=== PATIENT | male | born 1995 | race Caucasian/White ===

== ENCOUNTER 2023-01-13 17:50 | Inpatient (IN) | payer BC, MEDICAID ==
[~2023-01-13] VITALS: Ht 175.3 cm; Wt 106.1 kg
[2023-01-13 18:09] VITALS: BP 130/68; PULSE 109; RESP 18; TEMP 98.2; O2SAT 98
[2023-01-13] MEDS ORDERED: KETOROLAC 30 MG/ML VIAL IVP ONE (18:20)
[2023-01-13] MEDS ORDERED: NACL 0.9% 1,000 ML IV ONE ×2 (18:20→19:45)
[2023-01-13] MEDS ORDERED: FAMOTIDINE 20 MG/2 ML VIAL IVP ONE (18:55)
[2023-01-13 19:10] LABS: HEMATOCRIT 47.5 % (36-52); HEMOGLOBIN 15.7 g/dL (12.0-18.0); MEAN CORPUSCULAR HEMOGLOBIN 30 pg (27-31); MEAN CORPUSCULAR HGB CONC 33 g/dL (33-37); PLATELET COUNT (AUTO) 188 K/uL (140-450); RED BLOOD CELL COUNT(AUTO) 5.28 MIL/uL (4.20-6.10); RED CELL DISTRIBUTION WIDTH 14.4 % (11.6-13.7); WHITE BLOOD COUNT (AUTO) 20.9 K/uL (4.8-10.8)
[2023-01-13 19:25] LABS: ALBUMIN 3.8 g/dL (3.4-5.0); ANION GAP 14.5 (8-16); CALCIUM 9.8 mg/dL (8.5-10.1); CARBON DIOXIDE 25.8 mmol/L (21-32); CREATININE 1.3 mg/dL (0.6-1.3); POTASSIUM 4.3 mmol/L (3.5-5.1); TOTAL BILIRUBIN 0.8 mg/dL (0.0-1.0); TOTAL PROTEIN, SERUM 8.6 g/dL (6.4-8.2)
[2023-01-13 19:30] LABS: LACTIC ACID 1.6 mmol/L (0.4-2.0)
[2023-01-13] MEDS ORDERED: PIPERACILLIN/TAZOBACTAM 3.375 GM in DEXTROSE 5% 50 ML IV ONE (19:30)
[2023-01-13] MEDS ORDERED: VANCOMYCIN 1,000 MG in DEXTROSE 5% 250 ML IV ONE (19:30)
[2023-01-13] MEDS ORDERED: MORPHINE SULFATE 4 MG/ML SYR IVP ONE (19:30)
[2023-01-13 19:33] LABS: LYMPHOCYTES % (MANUAL) 7 % (20-46); PLATELET ESTIMATE ADEQUATE; PROMYELOCYTES % 1 % (0-0)
[2023-01-13] MEDS ORDERED: KETOROLAC 30 MG/ML VIAL ONE (19:33)
[2023-01-13] MEDS ORDERED: VANCOMYCIN 1,000 MG VIAL ONE ×2 (19:35→23:54)
[2023-01-13] MEDS ORDERED: PIPERACILLIN/TAZOBACTAM 3.375 GM VIAL IV ONE ×2 (19:36→22:45)
[2023-01-13] MEDS ORDERED: ONDANSETRON 4 MG/2 ML VIAL IVP ONE (19:45)
[2023-01-13] MEDS ORDERED: ZOLPIDEM 5 MG TAB PO PRN (20:15)
[2023-01-13] MEDS ORDERED: POTASSIUM CHLORIDE 10 MEQ TABER PO PRN (20:15)
[2023-01-13] MEDS ORDERED: HYDROcodone/APAP 7.5/325 MG 1 TAB PO PRN (20:15)
[2023-01-13] MEDS ORDERED: DOCUSATE SODIUM 100 MG GELCAP PO PRN (20:15)
[2023-01-13] MEDS ORDERED: ACETAMINOPHEN 325 MG TAB PO PRN (20:15)
[2023-01-13] MEDS ORDERED: guaiFENesin DM 200/20 MG-10 ML 10 ML UDC PO PRN (20:15)
[2023-01-13] MEDS ORDERED: NACL 0.9% 1,000 ML IV SCH (20:15)
[2023-01-13 20:45] LABS: APPEARANCE,URINE CLEAR (CLEAR); BILIRUBIN,URINE 2+ (NEGATIVE); BLOOD, URINE TRACE-I (NEGATIVE); COLOR,URINE YELLOW (YELLOW); LEUKOCYTE ESTERASE ,URINE NEGATIVE (NEGATIVE); NITRITE, URINE NEGATIVE (NEGATIVE); PROTEIN,URINE 3+ (NEGATIVE); UGLUCOSE NEGATIVE (NEGATIVE); UROBILINOGEN,URINE 0.2 EU/dL (0.2 - 1)
[2023-01-13 20:51] LABS: INR 1.14 (0.8-1.2); PARTIAL THROMBOPLASTIN TIME 35.2 secs (22-35.6); PROTHROMBIN TIME 11.9 secs (10.8-13.4)
[2023-01-13 20:54] LABS: BACTERIA,URINE None Seen /HPF (None Seen); RBC,URINE 0-5 /HPF (0-5); SQUAMOUS EPITHELIAL CELL,UR None Seen /LPF (0-3 (FEW)); WBC,URINE NONE SEEN /HPF (0-5)
[2023-01-13 22:22] LABS: AMPHETAMINE, URINE NEGATIVE ng/ml (NEG <=1000); BARBITURATE, URINE NEGATIVE ng/ml (NEG <=200); BENZODIAZEPINE, URINE NEGATIVE ng/mL (NEG <=200); CANNABINOID, URINE POSITIVE ng/mL (NEG <=50); COCAINE, URINE NEGATIVE ng/mL (NEG <=300); OPIATE, URINE POSITIVE ng/mL (NEG <=2000); PHENCYCLIDINE SCREEN,URINE NEGATIVE ng/mL (NEG <=25)
[2023-01-13 22:30] VITALS: PULSE 79; RESP 16; O2SAT 98
[2023-01-13] MEDS ORDERED: VANCOMYCIN 1GM/DEXT 5% PREMIX 200 ML IV ONE (23:00)
[2023-01-13] MEDS: PIPERACILLIN/TAZOBACTAM 3.375 GM in DEXTROSE 5% 50 ML IV SCH (23:15)
[2023-01-14] VITALS (12 sets, daily range): BP systolic 108–136; BP diastolic 47–80; PULSE 66–102; RESP 17–21; TEMP 96.1–98; O2SAT 95–98
[2023-01-14] MEDS: DEXT 5% /NACL 0.9% 1,000 ML IV SCH ×2 (02:23→16:00)
[2023-01-14] MEDS ORDERED: PIPERACILLIN/TAZOBACTAM 3.375 GM VIAL IV ONE (04:29)
[2023-01-14] MEDS: PIPERACILLIN/TAZOBACTAM 3.375 GM in DEXTROSE 5% 50 ML IV SCH ×3 (05:07→20:55)
[2023-01-14] MEDS ORDERED: KETOROLAC 15 MG/ML VIAL IVP ONE (05:35)
[2023-01-14 05:54] LABS: ANION GAP 12.7 (8-16); CALCIUM 8.6 mg/dL (8.5-10.1); CARBON DIOXIDE 26.1 mmol/L (21-32); CREATININE 1.1 mg/dL (0.6-1.3); POTASSIUM 3.8 mmol/L (3.5-5.1); TOTAL BILIRUBIN 0.7 mg/dL (0.0-1.0); TOTAL PROTEIN, SERUM 7.2 g/dL (6.4-8.2)
[2023-01-14] MEDS ORDERED: PANTOPRAZOLE 40 MG TABEC PO SCH (09:00)
[2023-01-14] MEDS: VANCOMYCIN PER PHARMACY MC SCH (09:00)
[2023-01-14] MEDS: ONDANSETRON 4 MG/2 ML VIAL IM/IVP PRN ×3 (09:32→22:50)
[2023-01-14] MEDS: VANCOMYCIN 1.25GM PREMIX 250 ML IV SCH ×2 (09:41→16:00)
[2023-01-14 10:20] LABS: BASOPHILS % (AUTO) 0.3 % (0.0-2.0); EOSINOPHILS % (AUTO) 0.1 % (0.0-4.0); HEMATOCRIT 43.9 % (36-52); HEMOGLOBIN 14.2 g/dL (12.0-18.0); LYMPHOCYTES # (AUTO) 0.9 K/uL (2.0-11.5); LYMPHOCYTES % (AUTO) 5.8 % (20.5-51.1); MEAN CORPUSCULAR HEMOGLOBIN 30 pg (27-31); MEAN CORPUSCULAR HGB CONC 32 g/dL (33-37); MEAN CORPUSCULAR VOLUME 91.5 fL (80-94); MONOCYTES # (AUTO) 1.5 K/uL (0.8-1.0); MONOCYTES % (AUTO) 9.7 % (1.7-9.3); NEUTROPHILS # (AUTO) 13.3 K/uL (1.8-7.7); NEUTROPHILS % (AUTO) 84.1 % (42.2-75.2); PLATELET COUNT (AUTO) 164 K/uL (140-450); RED BLOOD CELL COUNT(AUTO) 4.79 MIL/uL (4.20-6.10); RED CELL DISTRIBUTION WIDTH 14.4 % (11.6-13.7); WHITE BLOOD COUNT (AUTO) 15.8 K/uL (4.8-10.8)
[2023-01-14] MEDS: NACL 0.9% 1,000 ML IV SCH (10:35)
[2023-01-14] MEDS ORDERED: MAG SULF 2000 MG/WATER PREMIX 50 ML IV PRN (10:35)
[2023-01-14] MEDS ORDERED: POTASSIUM CHLORIDE 10 MEQ TABER PO PRN (10:35)
[2023-01-14] MEDS ORDERED: ONDANSETRON 4 MG/2 ML VIAL IVP PRN (10:35)
[2023-01-14] MEDS ORDERED: HYDROcodone/APAP 7.5/325 MG 1 TAB PO PRN (10:35)
[2023-01-14] MEDS ORDERED: ACETAMINOPHEN 325 MG TAB PO PRN (10:35)
[2023-01-14 11:54] LABS: INR 1.12 (0.8-1.2); PROTHROMBIN TIME 11.7 secs (10.8-13.4)
[2023-01-14 11:59] LABS: LACTIC ACID 1.1 mmol/L (0.4-2.0)
[2023-01-14 12:08] LABS: AMYLASE 288 U/L (25-115); CHOL/HDL RATIO 4.4 (1-4.5); CHOLESTEROL 105 mg/dL (<200); FREE T4 (FREE THYROXINE) 1.12 ng/dL (0.76-1.46); HDL CHOLESTEROL 24 mg/dL (40-60); LDL (CALC) 65 mg/dL (60-100); LIPASE 1583 U/L (73-393); PHOSPHORUS 2.5 mg/dL (2.5-4.9); THYROID STIMULATING HORMONE 1.39 uIU/mL (0.34-3.74); TRIGLYCERIDES 84 mg/dL (30-150)
[2023-01-14] MEDS: DOCUSATE SODIUM 100 MG GELCAP PO SCH (20:55)
[2023-01-15] VITALS (9 sets, daily range): BP systolic 115–130; BP diastolic 61–80; PULSE 52–92; RESP 16–18; TEMP 97.3–98.5; O2SAT 96–100
[2023-01-15] MEDS: VANCOMYCIN 1.25GM PREMIX 250 ML IV SCH ×3 (00:29→17:03)
[2023-01-15] MEDS: PIPERACILLIN/TAZOBACTAM 3.375 GM in DEXTROSE 5% 50 ML IV SCH ×3 (04:48→20:34)
[2023-01-15] MEDS: NACL 0.9% 1,000 ML IV SCH (06:35)
[2023-01-15 06:47] LABS: BASOPHILS % (AUTO) 0.2 % (0.0-2.0); EOSINOPHILS % (AUTO) 0.1 % (0.0-4.0); HEMATOCRIT 42.5 % (36-52); HEMOGLOBIN 13.8 g/dL (12.0-18.0); LYMPHOCYTES # (AUTO) 0.9 K/uL (2.0-11.5); LYMPHOCYTES % (AUTO) 6.7 % (20.5-51.1); MEAN CORPUSCULAR HEMOGLOBIN 30 pg (27-31); MEAN CORPUSCULAR HGB CONC 33 g/dL (33-37); MEAN CORPUSCULAR VOLUME 90.7 fL (80-94); MONOCYTES # (AUTO) 1.4 K/uL (0.8-1.0); MONOCYTES % (AUTO) 9.8 % (1.7-9.3); NEUTROPHILS # (AUTO) 11.6 K/uL (1.8-7.7); NEUTROPHILS % (AUTO) 83.2 % (42.2-75.2); PLATELET COUNT (AUTO) 218 K/uL (140-450); RED BLOOD CELL COUNT(AUTO) 4.69 MIL/uL (4.20-6.10); RED CELL DISTRIBUTION WIDTH 14.5 % (11.6-13.7)
[2023-01-15 07:13] LABS: ALBUMIN 2.9 g/dL (3.4-5.0); ANION GAP 13.5 (8-16); CALCIUM 9.1 mg/dL (8.5-10.1); CARBON DIOXIDE 27.5 mmol/L (21-32); CREATININE 1.2 mg/dL (0.6-1.3); TOTAL BILIRUBIN 0.5 mg/dL (0.0-1.0); TOTAL PROTEIN, SERUM 7.3 g/dL (6.4-8.2)
[2023-01-15] MEDS: DEXT 5% /NACL 0.9% 1,000 ML IV SCH (08:21)
[2023-01-15] MEDS: DOCUSATE SODIUM 100 MG GELCAP PO SCH ×2 (08:21→20:34)
[2023-01-15] MEDS: VANCOMYCIN PER PHARMACY MC SCH (08:32)
[2023-01-15] MEDS ORDERED: PANTOPRAZOLE 40 MG INJ VIAL IVP SCH ×2 (09:00)
[2023-01-16] VITALS: BP 114/66; PULSE 57; PULSE 84; RESP 16; TEMP 97.4; O2SAT 99
[2023-01-16] MEDS: DEXT 5% /NACL 0.9% 1,000 ML IV SCH (01:05)
[2023-01-16] MEDS: VANCOMYCIN 1.25GM PREMIX 250 ML IV SCH ×2 (01:47→10:11)
[2023-01-16 04:00] VITALS: BP 139/77; PULSE 55; PULSE 58; RESP 16; TEMP 98.6; O2SAT 97
[2023-01-16] MEDS: PIPERACILLIN/TAZOBACTAM 3.375 GM in DEXTROSE 5% 50 ML IV SCH (05:28)
[2023-01-16 06:46] LABS: BASOPHILS % (AUTO) 0.2 % (0.0-2.0); EOSINOPHILS # (AUTO) 0.1 K/uL (0-0.4); EOSINOPHILS % (AUTO) 0.5 % (0.0-4.0); HEMATOCRIT 41.1 % (36-52); HEMOGLOBIN 13.4 g/dL (12.0-18.0); LYMPHOCYTES # (AUTO) 1.5 K/uL (2.0-11.5); LYMPHOCYTES % (AUTO) 13.4 % (20.5-51.1); MEAN CORPUSCULAR HEMOGLOBIN 29 pg (27-31); MEAN CORPUSCULAR HGB CONC 33 g/dL (33-37); MEAN CORPUSCULAR VOLUME 90.3 fL (80-94); MONOCYTES # (AUTO) 1.1 K/uL (0.8-1.0); MONOCYTES % (AUTO) 9.9 % (1.7-9.3); NEUTROPHILS # (AUTO) 8.5 K/uL (1.8-7.7); PLATELET COUNT (AUTO) 244 K/uL (140-450); RED BLOOD CELL COUNT(AUTO) 4.55 MIL/uL (4.20-6.10); RED CELL DISTRIBUTION WIDTH 14.8 % (11.6-13.7); WHITE BLOOD COUNT (AUTO) 11.1 K/uL (4.8-10.8)
[2023-01-16 06:54] LABS: ALBUMIN 2.8 g/dL (3.4-5.0); ANION GAP 11.5 (8-16); CALCIUM 8.7 mg/dL (8.5-10.1); CARBON DIOXIDE 27.1 mmol/L (21-32); POTASSIUM 3.6 mmol/L (3.5-5.1); TOTAL BILIRUBIN 0.7 mg/dL (0.0-1.0); TOTAL PROTEIN, SERUM 7.2 g/dL (6.4-8.2)
[2023-01-16 08:00] VITALS: BP 137/71; PULSE 60; PULSE 61; RESP 16; TEMP 97; O2SAT 99
[2023-01-16] MEDS ORDERED: PANTOPRAZOLE 40 MG INJ VIAL IVP SCH (09:00)
[2023-01-16] MEDS: VANCOMYCIN PER PHARMACY MC SCH (09:00)
[2023-01-16] MEDS ORDERED: METR-520 PO (09:04)
[2023-01-16] MEDS ORDERED: LEVO750T75 PO (09:04)
[2023-01-16] MEDS: DOCUSATE SODIUM 100 MG GELCAP PO SCH (09:49)
[2023-01-16] MEDS ORDERED: CYCL-711 PO (11:14)
== END 2023-01-16 13:22 | disposition home or self-care (01) | DRG 720 ==
LOC: MED 17:50 → MIC 20:14 → MTU 01-14 10:48
PROVIDERS: ADMIT Student in an Organized Health Care Education/Training Program; ATTEND Student in an Organized Health Care Education/Training Program
DX: A41.9 Sepsis, unspecified organism (principal); K65.9 Peritonitis, unspecified; E44.1 Mild protein-calorie malnutrition; E87.1 Hypo-osmolality and hyponatremia; K76.0 Fatty (change of) liver, not elsewhere classified; K57.20 Diverticulitis of large intestine with perforation and abscess without bleeding; K56.7 Ileus, unspecified; E66.9 Obesity, unspecified; E86.0 Dehydration; Z68.34 Body mass index [BMI] 34.0-34.9, adult
CPT/HCPCS: 36415; 74018; 76705; 80053; 80202; 80305; 81001; 82150; 83036; 83605; 83690; 83735; 83880; 84100; 84439; 84443; 84484; 85025; 85610; 85730; 87040; 87081; 87086; 93005; 96374; 96375; 99291; C9113; J1885; J2270; J2405; J2543; J3370; J3372; J3490; J7060; Q0092